=== PATIENT | female | born 1945 | race Caucasian/White ===

== ENCOUNTER 2022-10-31 14:46 | Inpatient (IN) ==
[2022-10-31] MEDS ORDERED: SODIUM CHLORIDE 0.9% 1,000 ML IV STA (17:20)
[2022-10-31 17:53] LABS: Basophils # 0.1 10*3/uL (0.0-0.2); Basophils % 0.5 % (0.0-0.8); Eosinophils # 0.2 10*3/uL (0.0-0.87); Eosinophils % 1.4 % (0.00-10.9); Hematocrit 42.2 VOL% (35.7-47.0); Hemoglobin 14.2 GM/DL (12.0-16.0); Immature Granulocytes % 0.5 %; Immature Granulocytes Absolute 0.06 #; Lymphocytes # 3.4 10*3/uL (1.4-4.0); Mean Corpuscular HGB Conc 33.6 GM/DL (32-36); Mean Corpuscular Volume 73.9 FL (87-102); Mean Platelet Volume 9.4 FL (9.6-12.0); Monocytes # 0.6 10*3/uL (0.11-0.8); Monocytes % 4.9 % (1.7-12.7); Neutrophils % 63.7 % (38.7-73.9); Platelet Count 94 T/CUMM (130-400); Red Blood Count 5.71 MC/CUMM (3.8-5.5); Red Cell Distribution Width 16.7 % (9.3-17.3); White Blood Count 11.6 T/CUMM (4-12)
[2022-10-31 18:07] LABS: Bilirubin,Total 0.5 MG/DL (0.20-1.00); Calcium 9.6 MG/DL (8.5-10.1); Osmolality,Calculated 268.4 MOS/KG (273-304); Potassium 2.6 MMOL/L (3.5-5.1); Total Protein 6.9 G/DL (6.4-8.2)
[2022-10-31 18:45] LABS: Bacteria,Urine Many /HPF (Few); Mucus,Urine Occasional /LPF (Occasional); RBC,Urine 27 /HPF (0-4)
[2022-10-31 18:47] LABS: Bilirubin,Urine Small mg/dL (Negative); Blood, Urine Large mg/dL (Negative); Glucose,Urine (UA) Negative (Negative); Ketones,Urine Negative (Negative); Nitrite,Urine Positive (Negative); Protein,Urine 30 mg/dL (Negative); Urine Appearance Cloudy (Clear); Urine Color Brown (Yellow); Urine pH 6.5 (4.5-8.0)
[2022-10-31 18:48] LABS: Urine Urobilinogen 0.2 eU/dL (<2.0)
[2022-10-31] MEDS ORDERED: POTASSIUM CHLORIDE 20 MEQ TABLET PO STA (18:57)
[2022-10-31] MEDS ORDERED: cefTRIAXone 1,000 MG in SODIUM CHLORIDE 0.9% 100 ML IV STA (18:57)
[2022-10-31] MEDS ORDERED: SIMETHICONE CHEW 125 MG TABLET PO PRN (19:45)
[2022-10-31] MEDS ORDERED: ONDANSETRON 4 MG/2 ML VIAL IV PRN (19:45)
[2022-10-31] MEDS ORDERED: ACETAMINOPHEN 325 MG TABLET PO PRN (19:45)
[2022-10-31] MEDS ORDERED: LACTATED RINGERS 1,000 ML IV ONE ×2 (20:00→22:00)
[2022-10-31] MEDS ORDERED: ENOXAPARIN 40 MG/0.4 ML SYRINGE SUBCUT SCH (21:00)
[2022-10-31] MEDS: SODIUM CHLOR 0.9% KCL 20 MEQ 20 MEQ/1,000 ML BAG IV SCH (21:40)
[2022-10-31] MEDS ORDERED: traMADol 50 MG TABLET PO PRN (21:47)
[2022-10-31] MEDS ORDERED: BENZONATATE 100 MG CAPSULE PO PRN (21:57)
[2022-10-31] MEDS ORDERED: ACETAMINOPHEN 500 MG TABLET PO PRN (22:00)
[2022-11-01] MEDS: PIPERACILLIN/TAZOBACTAM 3,375 MG in SODIUM CHLORIDE 0.9% 100 ML IV SCH ×2 (01:39→10:39)
[2022-11-01 03:10] LABS: Basophils # 0.1 10*3/uL (0.0-0.2); Basophils % 0.9 % (0.0-0.8); Eosinophils # 0.4 10*3/uL (0.0-0.87); Eosinophils % 5.2 % (0.00-10.9); Hematocrit 33.8 VOL% (35.7-47.0); Immature Granulocytes % 0.6 %; Immature Granulocytes Absolute 0.05 #; Lymphocytes # 2.1 10*3/uL (1.4-4.0); Mean Corpuscular HGB Conc 34.6 GM/DL (32-36); Mean Corpuscular Volume 72.7 FL (87-102); Mean Platelet Volume 10.5 FL (9.6-12.0); Monocytes # 0.5 10*3/uL (0.11-0.8); Monocytes % 6.2 % (1.7-12.7); Neutrophils % 61.1 % (38.7-73.9); Red Blood Count 4.65 MC/CUMM (3.8-5.5); Red Cell Distribution Width 16.3 % (9.3-17.3)
[2022-11-01 03:11] LABS: Hemoglobin 11.7 GM/DL (12.0-16.0); Platelet Count 65 T/CUMM (130-400); White Blood Count 7.9 T/CUMM (4-12)
[2022-11-01 03:36] LABS: Anisocytosis 2+; Band Neutrophils 8 % (0-10); Burr Cells 1+; Calcium 8.6 MG/DL (8.5-10.1); Eosinophils 7 % (0-10); Lymphocytes 21 % (20-55); Osmolality,Calculated 277.5 MOS/KG (273-304); Platelet Estimate Decreased; Potassium 2.9 MMOL/L (3.5-5.1); Thyroid Stimulating Hormone 1.19 uIU/ml (0.358-3.74); Total Cells Counted 100
[2022-11-01 03:37] LABS: Ovalocytes 1+
[2022-11-01] MEDS: SODIUM CHLOR 0.9% KCL 20 MEQ 20 MEQ/1,000 ML BAG IV SCH ×2 (08:23→20:08)
[2022-11-01] MEDS ORDERED: PANTOPRAZOLE 40 MG TABLET PO SCH (09:00)
[2022-11-01] MEDS ORDERED: POTASSIUM CHLORIDE 20 MEQ TABLET PO ONE ×2 (09:10→16:54)
[2022-11-01] MEDS: MULTIVITAMIN (CENTRUM) TABLET PO SCH (10:36)
[2022-11-01] MEDS: LOSARTAN 50 MG TABLET PO SCH (10:37)
[2022-11-01] MEDS: DICYCLOMINE 10 MG CAPSULE PO SCH ×2 (10:37→20:46)
[2022-11-01] MEDS: rOPINIRole 0.25 MG TABLET PO SCH ×3 (10:37→16:32)
[2022-11-01] MEDS: MEGESTROL 40 MG TABLET PO SCH ×2 (10:37→20:46)
[2022-11-01] MEDS: CARBIDOPA LEVODOPA PO SCH ×3 (10:37→20:47)
[2022-11-01] MEDS: LIPASE PROTEASE AMYLASE PO SCH ×3 (10:38→20:47)
[2022-11-01] MEDS: LEVOFLOXACIN INJ 750 MG/150 ML PREMIX IV SCH (12:53)
[2022-11-01] MEDS: VENLAFAXINE XR 75 MG CAPSULE PO SCH (12:54)
[2022-11-01] MEDS ORDERED: MAGNESIUM HYDROXIDE SUSP 30 ML UDCUP PO ONE (13:30)
[2022-11-01] MEDS ORDERED: cefTRIAXone 1,000 MG in SODIUM CHLORIDE 0.9% 100 ML IV SCH (20:00)
[2022-11-01] MEDS: PANTOPRAZOLE 40 MG TABLET PO SCH (20:46)
[2022-11-01] MEDS ORDERED: CHOLESTYRAMINE 4 GM PACK PO SCH (22:00)
[2022-11-02 05:36] LABS: Basophils % 0.7 % (0.0-0.8); Eosinophils # 0.2 10*3/uL (0.0-0.87); Eosinophils % 2.9 % (0.00-10.9); Hematocrit 33.2 VOL% (35.7-47.0); Hemoglobin 11.1 GM/DL (12.0-16.0); Immature Granulocytes % 0.7 %; Immature Granulocytes Absolute 0.04 #; Lymphocytes # 1.3 10*3/uL (1.4-4.0); Lymphocytes % 22.2 % (21.3-54.2); Mean Corpuscular HGB Conc 33.4 GM/DL (32-36); Mean Corpuscular Volume 73.5 FL (87-102); Mean Platelet Volume 9.7 FL (9.6-12.0); Monocytes # 0.4 10*3/uL (0.11-0.8); Monocytes % 6.5 % (1.7-12.7); Red Blood Count 4.52 MC/CUMM (3.8-5.5); Red Cell Distribution Width 16.7 % (9.3-17.3); White Blood Count 5.9 T/CUMM (4-12)
[2022-11-02 05:39] LABS: Platelet Count 66 T/CUMM (130-400)
[2022-11-02 05:58] LABS: Burr Cells Slight; Calcium 8.7 MG/DL (8.5-10.1); Osmolality,Calculated 279.3 MOS/KG (273-304); Ovalocytes Slight; Platelet Estimate Decreased; Potassium 3.3 MMOL/L (3.5-5.1)
[2022-11-02] MEDS: SODIUM CHLOR 0.9% KCL 20 MEQ 20 MEQ/1,000 ML BAG IV SCH ×3 (06:15→18:52)
[2022-11-02] MEDS ORDERED: MAGNESIUM SULF RIDER 2 GM/50 ML PREMIX IV ONE (07:22)
[2022-11-02] MEDS ORDERED: POTASSIUM CHLORIDE 20 MEQ TABLET PO ONE (07:22)
[2022-11-02] MEDS: BISACODYL 5 MG TABLET PO SCH ×3 (09:52→22:04)
[2022-11-02] MEDS: rOPINIRole 0.25 MG TABLET PO SCH ×3 (09:53→18:51)
[2022-11-02] MEDS: DICYCLOMINE 10 MG CAPSULE PO SCH ×2 (09:53→21:57)
[2022-11-02] MEDS: MULTIVITAMIN (CENTRUM) TABLET PO SCH (09:54)
[2022-11-02] MEDS: LOSARTAN 50 MG TABLET PO SCH (09:54)
[2022-11-02] MEDS: LIPASE PROTEASE AMYLASE PO SCH ×3 (09:54→21:57)
[2022-11-02] MEDS: CARBIDOPA LEVODOPA PO SCH ×3 (09:54→21:57)
[2022-11-02] MEDS: MEGESTROL 40 MG TABLET PO SCH ×2 (09:55→21:57)
[2022-11-02] MEDS: PANTOPRAZOLE 40 MG TABLET PO SCH ×2 (09:55→21:57)
[2022-11-02] MEDS: LEVOFLOXACIN INJ 750 MG/150 ML PREMIX IV SCH (10:40)
[2022-11-02] MEDS: VENLAFAXINE XR 75 MG CAPSULE PO SCH (13:55)
[2022-11-02] MEDS ORDERED: MAGNESIUM HYDROXIDE SUSP 30 ML UDCUP PO ONE (18:00)
[2022-11-02] MEDS ORDERED: POLYETHYLENE GLYCOL POWDER 255 GM BOTTLE PO ONE (18:00)
[2022-11-02] MEDS: DESITIN 4OZ/NYSTATIN 15 GRAM MIXTURE PASTE TOP SCH (21:59)
[2022-11-03] MEDS: SODIUM CHLOR 0.9% KCL 20 MEQ 20 MEQ/1,000 ML BAG IV SCH ×2 (05:03→21:39)
[2022-11-03 05:22] LABS: Basophils # 0.1 10*3/uL (0.0-0.2); Basophils % 0.9 % (0.0-0.8); Eosinophils # 0.1 10*3/uL (0.0-0.87); Eosinophils % 2.2 % (0.00-10.9); Hematocrit 35.6 VOL% (35.7-47.0); Hemoglobin 11.8 GM/DL (12.0-16.0); Immature Granulocytes % 0.9 %; Immature Granulocytes Absolute 0.06 #; Lymphocytes # 1.6 10*3/uL (1.4-4.0); Lymphocytes % 25.3 % (21.3-54.2); Mean Corpuscular HGB Conc 33.1 GM/DL (32-36); Mean Corpuscular Volume 74.8 FL (87-102); Mean Platelet Volume 9.4 FL (9.6-12.0); Monocytes # 0.5 10*3/uL (0.11-0.8); Monocytes % 7.9 % (1.7-12.7); Neutrophils % 62.8 % (38.7-73.9); Platelet Count 64 T/CUMM (130-400); Red Blood Count 4.76 MC/CUMM (3.8-5.5); Red Cell Distribution Width 17.3 % (9.3-17.3); White Blood Count 6.4 T/CUMM (4-12)
[2022-11-03 05:42] LABS: Hypochromia Slight; Microcytosis 1+; Ovalocytes Few
[2022-11-03 05:43] LABS: Acanthocytes Few; Platelet Estimate Decreased
[2022-11-03 05:56] LABS: Albumin 2.3 G/DL (3.4-5.0); Bilirubin,Total 0.5 MG/DL (0.20-1.00); Calcium 8.6 MG/DL (8.5-10.1); Osmolality,Calculated 274.5 MOS/KG (273-304); Total Protein 5.2 G/DL (6.4-8.2)
[2022-11-03] MEDS ORDERED: POTASSIUM CHLORIDE RIDER 10 MEQ/100 ML PREMIX IV PRN (07:34)
[2022-11-03] MEDS: rOPINIRole 0.25 MG TABLET PO SCH ×3 (08:26→17:17)
[2022-11-03] MEDS: CARBIDOPA LEVODOPA PO SCH ×3 (08:27→21:33)
[2022-11-03] MEDS: PANTOPRAZOLE 40 MG TABLET PO SCH ×2 (08:27→21:19)
[2022-11-03] MEDS: LOSARTAN 50 MG TABLET PO SCH (08:27)
[2022-11-03] MEDS: LIPASE PROTEASE AMYLASE PO SCH ×3 (08:30→21:33)
[2022-11-03] MEDS: DESITIN 4OZ/NYSTATIN 15 GRAM MIXTURE PASTE TOP SCH ×2 (08:32→23:16)
[2022-11-03] MEDS: MEGESTROL 40 MG TABLET PO SCH ×2 (08:32→21:19)
[2022-11-03] MEDS: DICYCLOMINE 10 MG CAPSULE PO SCH ×2 (08:33→21:19)
[2022-11-03] MEDS: LEVOFLOXACIN INJ 750 MG/150 ML PREMIX IV SCH (12:02)
[2022-11-03] MEDS: LACTATED RINGERS 1,000 ML IV SCH (12:35)
[2022-11-03] MEDS ORDERED: LIDOCAINE 2% 5 ML VIAL ONE (13:26)
[2022-11-03] MEDS ORDERED: propofoL 200 MG/20 ML VIAL IV ONE (13:26)
[2022-11-03] MEDS ORDERED: PHENYLEPHRINE 1 MG/10 ML SYRINGE IV ONE (13:41)
[2022-11-03] MEDS: VENLAFAXINE XR 75 MG CAPSULE PO SCH (15:16)
[2022-11-03] MEDS: MULTIVITAMIN (CENTRUM) TABLET PO SCH (15:16)
[2022-11-04 05:25] LABS: Basophils # 0.1 10*3/uL (0.0-0.2); Basophils % 0.8 % (0.0-0.8); Eosinophils # 0.3 10*3/uL (0.0-0.87); Eosinophils % 3.1 % (0.00-10.9); Hematocrit 36.6 VOL% (35.7-47.0); Hemoglobin 12.4 GM/DL (12.0-16.0); Immature Granulocytes % 0.9 %; Immature Granulocytes Absolute 0.08 #; Lymphocytes # 2.1 10*3/uL (1.4-4.0); Lymphocytes % 23.7 % (21.3-54.2); Mean Corpuscular HGB Conc 33.9 GM/DL (32-36); Mean Corpuscular Volume 74.8 FL (87-102); Mean Platelet Volume 10.8 FL (9.6-12.0); Monocytes # 0.7 10*3/uL (0.11-0.8); Monocytes % 7.5 % (1.7-12.7); Platelet Count 72 T/CUMM (130-400); Red Blood Count 4.89 MC/CUMM (3.8-5.5); Red Cell Distribution Width 18.2 % (9.3-17.3); White Blood Count 8.8 T/CUMM (4-12)
[2022-11-04 05:50] LABS: Albumin 2.2 G/DL (3.4-5.0); Bilirubin,Total 0.5 MG/DL (0.20-1.00); Calcium 8.4 MG/DL (8.5-10.1); Osmolality,Calculated 278.3 MOS/KG (273-304); Potassium 3.4 MMOL/L (3.5-5.1); Total Protein 5.2 G/DL (6.4-8.2)
[2022-11-04 05:55] LABS: Platelet Estimate Decreased
[2022-11-04 05:56] LABS: Acanthocytes Few; Hypochromia Slight; Microcytosis Slight; Ovalocytes Slight
[2022-11-04] MEDS ORDERED: POTASSIUM CHLORIDE 20 MEQ TABLET PO ONE (07:25)
[2022-11-04] MEDS: DICYCLOMINE 10 MG CAPSULE PO SCH ×2 (08:00→20:55)
[2022-11-04] MEDS: PANTOPRAZOLE 40 MG TABLET PO SCH ×2 (08:00→20:55)
[2022-11-04] MEDS: LOSARTAN 50 MG TABLET PO SCH (08:00)
[2022-11-04] MEDS: MULTIVITAMIN (CENTRUM) TABLET PO SCH (08:00)
[2022-11-04] MEDS: LIPASE PROTEASE AMYLASE PO SCH ×3 (08:01→20:55)
[2022-11-04] MEDS: CARBIDOPA LEVODOPA PO SCH ×3 (08:01→20:55)
[2022-11-04] MEDS: SODIUM CHLOR 0.9% KCL 20 MEQ 20 MEQ/1,000 ML BAG IV SCH (08:05)
[2022-11-04] MEDS: rOPINIRole 0.25 MG TABLET PO SCH ×3 (08:05→16:11)
[2022-11-04] MEDS: DESITIN 4OZ/NYSTATIN 15 GRAM MIXTURE PASTE TOP SCH ×2 (08:08→20:55)
[2022-11-04] MEDS: MEGESTROL 40 MG TABLET PO SCH ×2 (08:09→20:55)
[2022-11-04 09:16] LABS: Collection duration of stool Random h; Total Weight of Stool 18 g
[2022-11-04] MEDS: CHOLESTYRAMINE 4 GM PACK PO SCH ×2 (09:32→21:27)
[2022-11-04] MEDS: VENLAFAXINE XR 75 MG CAPSULE PO SCH (12:43)
[2022-11-04] MEDS: LEVOFLOXACIN INJ 750 MG/150 ML PREMIX IV SCH (12:44)
[2022-11-04] MEDS: LACTATED RINGERS 1,000 ML IV SCH (22:33)
[2022-11-05 06:13] LABS: Albumin 2.3 G/DL (3.4-5.0); Bilirubin,Total 0.7 MG/DL (0.20-1.00); Calcium 8.7 MG/DL (8.5-10.1); Osmolality,Calculated 271.8 MOS/KG (273-304); Potassium 3.6 MMOL/L (3.5-5.1); Total Protein 5.1 G/DL (6.4-8.2)
[2022-11-05] MEDS: LACTATED RINGERS 1,000 ML IV SCH (07:02)
[2022-11-05 07:17] LABS: Basophils # 0.1 10*3/uL (0.0-0.2); Basophils % 0.6 % (0.0-0.8); Eosinophils # 0.3 10*3/uL (0.0-0.87); Hematocrit 36.1 VOL% (35.7-47.0); Hemoglobin 12.3 GM/DL (12.0-16.0); Immature Granulocytes % 0.9 %; Immature Granulocytes Absolute 0.08 #; Lymphocytes # 1.9 10*3/uL (1.4-4.0); Lymphocytes % 21.8 % (21.3-54.2); Mean Corpuscular HGB Conc 34.1 GM/DL (32-36); Mean Corpuscular Volume 74.1 FL (87-102); Mean Platelet Volume 10.8 FL (9.6-12.0); Monocytes # 0.7 10*3/uL (0.11-0.8); Monocytes % 7.8 % (1.7-12.7); Neutrophils % 65.9 % (38.7-73.9); Platelet Count 78 T/CUMM (130-400); Red Blood Count 4.87 MC/CUMM (3.8-5.5); Red Cell Distribution Width 18.9 % (9.3-17.3); White Blood Count 8.5 T/CUMM (4-12)
[2022-11-05 07:24] LABS: Hypochromia Slight; Ovalocytes Slight
[2022-11-05 07:25] LABS: Microcytosis Slight; Platelet Estimate Decreased
[2022-11-05] MEDS ORDERED: MAGNESIUM SULF RIDER 2 GM/50 ML PREMIX IV ONE (07:39)
[2022-11-05] MEDS: LOSARTAN 50 MG TABLET PO SCH (08:35)
[2022-11-05] MEDS: rOPINIRole 0.25 MG TABLET PO SCH ×2 (08:35→11:46)
[2022-11-05] MEDS: DICYCLOMINE 10 MG CAPSULE PO SCH (08:36)
[2022-11-05] MEDS: PANTOPRAZOLE 40 MG TABLET PO SCH (08:36)
[2022-11-05] MEDS: MESALAMINE 800 MG TABLET PO SCH ×2 (08:39→15:57)
[2022-11-05] MEDS: MEGESTROL 40 MG TABLET PO SCH (08:40)
[2022-11-05] MEDS: MULTIVITAMIN (CENTRUM) TABLET PO SCH (08:40)
[2022-11-05] MEDS: CARBIDOPA LEVODOPA PO SCH ×2 (08:41→16:02)
[2022-11-05] MEDS: DESITIN 4OZ/NYSTATIN 15 GRAM MIXTURE PASTE TOP SCH (08:42)
[2022-11-05] MEDS: LIPASE PROTEASE AMYLASE PO SCH ×2 (08:42→16:02)
[2022-11-05] MEDS ORDERED: LEVOFLOXACIN 750 MG TABLET PO ONE (08:59)
[2022-11-05] MEDS: CHOLESTYRAMINE 4 GM PACK PO SCH (09:51)
[2022-11-05] MEDS: LEVOFLOXACIN INJ 750 MG/150 ML PREMIX IV SCH (11:38)
[2022-11-05] MEDS: VENLAFAXINE XR 75 MG CAPSULE PO SCH (11:46)
[2022-11-05 13:17] VITALS: BP 132/69
== END 2022-11-05 15:39 | disposition home health service (06) | DRG 690 ==
LOC: N.ED 14:46 → SUATTDRO 19:45 → N.EDINP 19:45 → N.TELES 21:01
PROVIDERS: ADMIT Internal Medicine; ATTEND Internal Medicine Geriatric Medicine